=== PATIENT | male | born 1960 | race Caucasian/White ===

== ENCOUNTER 2018-04-11 17:15 | Inpatient (IN) | payer OTHER ==
[~2018-04-11] VITALS: Ht 180.3 cm; Wt 95.4 kg
--- NOTE | 2018-04-11 17:35 | EKG ---
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
--- NOTE | 2018-04-11 17:47 | PHYS DOC ---
Past History Past Medical History: COPD, Hypertension, Seizure Additional Past Surgical Histo: bilateral elbows Smoking: Quit Greater Than 1 Year Alcohol Use: Occasionally Drug Use: Marijuana Adult General Chief Complaint Chief Complaint: seizure activity/syncope/hypertension HPI HPI Patient is a 57 year old male patient of [facility] who brought in by EMS after [facility] Emergency room refused to accept the patient after EMS unloading him in ambulance bay of [facility] for lack of ICU bed even patient originally was accepted to [facility] according to EMS report. Patient has history of seizure but today had 1 seizure that was different from his usual seizure with loss of consciousness few seconds and after seizure did not have postictal condition. Patient complaining of constant dizziness that his seizure and had 1 episode of vomiting. EMS states his blood pressure was 50s over 30s without tachycardia or altered level of consciousness. Patient states he drinks alcohol twice a week and had fifth of vodka last night. Patient denies chest pain, shortness of breath, focal neuro deficit, fever and chills, cough and congestion. Patient started to have moderate to severe cough after arrival to emergency room. Review of Systems Review of Systems Constitutional: Denies fever or chills [] Eyes: Denies change in visual acuity, redness, or eye pain [] HENT: Denies nasal congestion or sore throat [] Respiratory: Denies cough or shortness of breath [] Cardiovascular: No additional information not addressed in HPI [] GI: Denies abdominal pain, nausea, vomiting, bloody stools or diarrhea [] : Denies dysuria or hematuria [] Musculoskeletal: Denies back pain or joint pain [] Integument: Denies rash or skin lesions [] Neurologic: Reports dizziness and headache, denies focal weakness or sensory changes [] Endocrine: Denies polyuria or polydipsia [] All other systems were reviewed and found to be within normal limits, except as documented in this note. Allergies Allergies Allergies Coded Allergies Type Severity Reaction Last Updated Verified phenytoin Allergy Unknown 04/11/18 Yes Physical Exam Physical Exam Constitutional: Well developed, well nourished, mild distress, non-toxic appearance, smell of alcohol on breath. [] HENT: Normocephalic, atraumatic, oropharynx moist, no oral exudates, nose normal. [] Eyes: PERRLA, EOMI, conjunctiva normal, no discharge. [] Neck: Normal range of motion, no tenderness, supple, no stridor. [] Cardiovascular:Heart rate regular rhythm, no murmur [] Lungs & Thorax: Bilateral breath sounds clear to auscultation [] Abdomen: Bowel sounds normal, soft, no tenderness, no masses, no pulsatile masses. [] Skin: Warm, dry, no erythema, no rash. [] Back: No tenderness, no CVA tenderness. [] Extremities: No tenderness, no cyanosis, no clubbing, ROM intact, no edema. [] Neurologic: Alert and oriented X 3, normal motor function, normal sensory function, no focal deficits noted, NIH scale of 0. [] Psychologic: Affect normal, judgement normal, mood normal. [] Olivier- 1900: Constitutional: Well developed, well nourished, non-toxic appearance, HENT: Normocephalic, atraumatic Eyes: PERRL, EOMI, horizontal nystagmus noted Neck: Normal range of motion, supple, no stridor. [] Skin: Warm, dry, no erythema, no rash. [] Neurologic: Alert and oriented X 3, normal motor function, normal sensory function, no focal deficits noted, Strength to all extremities 5/5 Psychologic: Affect normal, judgement normal, mood normal. [] EKG EKG EKG interpreted by me. EKG at 1725 showed heart rate of 77, normal sinus rhythm , normal VT and QT, no prolonged QT, no acute ST and T-wave abnormalities, poor R wave practicing in anteroseptal leads. Radiology/Procedures Radiology/Procedures PROCEDURE: CT HEAD WO CONTRAST CT HEAD INDICATION: SYNCOPE COMPARISON: None Available. Exposure: One or more of the following individualized dose reduction techniques were utilized for this examination: 1. Automated exposure control 2. Adjustment of the mA and/or kV according to patient size 3. Use of iterative reconstruction technique TECHNIQUE: 5 mm contiguous axial images were obtained from the skull base to the vertex in both bone and soft tissue algorithm. FINDINGS: There is a 2.3 cm hypodensity identified in the inferior aspect of the right frontal lobe without mass effect probably old infarct. Small right middle cranial fossa arachnoid cyst identified. No evidence of acute intracranial hemorrhage. No extra-axial fluid collections. No mass effect or midline shift. Ventricular size is appropriate. Basal cisterns are patent. No fractures identified.Zimmerman-white differentiation is preserved.Globes and orbits are within normal limits. Paranasal sinuses and mastoid air cells are clear. IMPRESSION: 1. 2.3 cm hypodensity identified in the inferior aspect of the right frontal lobe without mass effect probably old infarct. If there is clinical suspicion for acute infarct , consider follow-up MRI. CXR (preliminary interpretation by ED physician): Bibasilar atelectasis Course & Med Decision Making Course & Med Decision Making Pertinent Labs and Imaging are pending. Evaluation of patient in ER showed 57-year-old male patient brought in because of hypotension and seizures or syncope. Patient was alert and oriented with arrival to ER but had a constant cough that improved with DuoNeb. Blood pressure was 120s/60s and heart rate was 70s. Patient had unremarkable physical exam. Labs and CT of head is pending. Patient care transferred to Dr. Olivier at 1900. 1900- Sign out received from Dr. Ramírez for patient with history of seizure at home which was different than prior seizures in the past. Patient also apparently was noted to have significant hypotension. [facility] facility . Labs reviewed. Lactic acidosis noted. NO SIRS criteria met. WBC WNL. EKG reviewed. Troponin WNL. CT head without acute process. Patient reports right frontal hypodensity is chronic in nature. Patient seen and evaluated by myself. Horizontal nystagmus noted. Antivert and ASA given. NIHSS 0. CXR with some atelectasis, Orthostatic VS stable with laying and sitting. Given patient reports continued dizziness and reports seizure different than prior. Patient requiring admission for further evaluation and treatment. Discussed with Dr. Knight (hospitalist) who is in agreement with admission. Discussed findings and plan with patient, who acknowledges understanding and agreement. Dragon Disclaimer Dragon Disclaimer This electronic medical record was generated, in whole or in part, using a voice recognition dictation system. Departure Departure: Impression: Primary Impression: Dizziness Additional Impressions: History of seizure Lactic acidosis Disposition: ADMITTED INPATIENT Admitting Physician: Rickey Knight Condition: STABLE NIHSS - ED NIH Stroke Scale: NIH Stroke Scale Response (Comments) Value Level of Consciousness: 0 Alert/Responsive 0 LOC Questions: 0 Answers both correctly 0 LOC Commands: 0 Performs both tasks 0 Best Gaze: 0 Normal 0 Visual: 0 No visual loss 0 Facial Palsy: 0 Normal, symmetrical 0 Motor - Left Arm 0 No drift 0 Motor - Right Arm 0 No drift 0 Motor - Left Leg 0 No drift 0 Motor: Right Leg 0 No drift 0 Limb Ataxia: 0 Absent 0 Sensory: 0 No loss 0 Best Language: 0 Normal 0 Dysathria: 0 Normal 0 Extinction and Inattention: 0 Normal 0 Total 0 Problem Qualifiers LAMAR RAMÍREZ MD Apr 11, 2018 17:47 MADELINE OLIVIER DO Apr 11, 2018 19:52
[2018-04-11 18:00] LABS: BASO # 0.1 x10^3/uL (0.0-0.2); BASO % 1 % (0-3); EOS # 0.2 x10^3/uL (0.0-0.7); EOS % 2 % (0-3); HEMATOCRIT 44.4 % (39.0-53.0); HEMOGLOBIN 14.8 g/dL (13.0-17.5); LYMPH # 2.5 x10^3/uL (1.0-4.8); LYMPH % 29 % (24-48); MEAN CORPUSCULAR HEMOGLOBIN 31 pg (25-35); MEAN CORPUSCULAR HGB CONC 33 g/dL (31-37); MEAN CORPUSCULAR VOLUME 92 fL (79-100); MONO % 11 % (0-9); NEUT % 57 % (31-73); PLATELET COUNT 199 x10^3/uL (140-400); RED BLOOD COUNT 4.81 x10^6/uL (4.30-5.70); RED CELL DISTRIBUTION WIDTH 15.6 % (11.5-14.5); WHITE BLOOD COUNT 8.8 x10^3/uL (4.0-11.0)
[2018-04-11] MEDS ORDERED: IV NORMAL SALINE 1,000ML 1,000 ML IV ONE (18:00)
[2018-04-11] MEDS ORDERED: ONDANSETRON PF 4 MG/2 ML VIAL. IV ONE (18:00)
[2018-04-11] MEDS ORDERED: IPRATRPIUM/ALBUTEROL 0.5/2.5MG 3 ML NEBU. NEB ONE (18:00)
[2018-04-11] MEDS ORDERED: methylPREDNISolone SOD SUCC PF 125 MG/2 ML VIAL. IV ONE (18:00)
--- NOTE | 2018-04-11 18:20 | RAD ---
CT HEAD INDICATION: SYNCOPE COMPARISON: None Available. Exposure: One or more of the following individualized dose reduction techniques were utilized for this examination: 1. Automated exposure control 2. Adjustment of the mA and/or kV according to patient size 3. Use of iterative reconstruction technique TECHNIQUE: 5 mm contiguous axial images were obtained from the skull base to the vertex in both bone and soft tissue algorithm. FINDINGS: There is a 2.3 cm hypodensity identified in the inferior aspect of the right frontal lobe without mass effect probably old infarct. Small right middle cranial fossa arachnoid cyst identified. No evidence of acute intracranial hemorrhage. No extra-axial fluid collections. No mass effect or midline shift. Ventricular size is appropriate. Basal cisterns are patent. No fractures identified.Zimmerman-white differentiation is preserved.Globes and orbits are within normal limits. Paranasal sinuses and mastoid air cells are clear. IMPRESSION: 1. 2.3 cm hypodensity identified in the inferior aspect of the right frontal lobe without mass effect probably old infarct. If there is clinical suspicion for acute infarct , consider follow-up MRI. Electronically signed by: Abel Carmichael MD (04/11/2018 6:17 PM) [facility]
[2018-04-11 18:50] LABS: ALBUMIN 3.2 g/dL (3.4-5.0); ALBUMIN/GLOBULIN RATIO 0.7 (1.0-1.7); CALCIUM 8.1 mg/dL (8.5-10.1); CREATININE 1.1 mg/dL (0.7-1.3); GFR 68.5; POTASSIUM 3.7 mmol/L (3.5-5.1); TOTAL BILIRUBIN 0.3 mg/dL (0.2-1.0); TOTAL PROTEIN 7.5 g/dL (6.4-8.2)
[2018-04-11] MEDS ORDERED: MECLIZINE 12.5 MG TABLET. PO PRN (19:00)
[2018-04-11] MEDS ORDERED: cefTRIAXone SODIUM 1 GM VIAL IV ONE (19:09)
[2018-04-11] MEDS ORDERED: IV NORMAL SALINE 50ML 50 ML ONE (19:09)
[2018-04-11] MEDS ORDERED: ONDANSETRON PF 4 MG/2 ML VIAL. IV PRN (20:00)
[2018-04-11] MEDS ORDERED: ASPIRIN 325 MG TABLET PO ONE (20:00)
--- NOTE | 2018-04-11 21:07 | RAD ---
EXAM: CHEST 1 VIEW History: Syncope COMPARISON: None available. TECHNIQUE: Single portable radiograph of the chest FINDINGS: The cardiac silhouette is unremarkable. Minimal left infrahilar airspace opacities likely atelectasis or infiltrate. The costophrenic sulci are clear and well demarcated. IMPRESSION: Minimal left infrahilar airspace opacity likely atelectasis or infiltrate. Follow-up to resolution. Electronically signed by: Abel Carmichael MD (04/11/2018 9:04 PM) [facility]
[2018-04-11 21:18] VITALS: BP 150/97
[2018-04-11] MEDS ORDERED: CHOL500016 PO (22:46)
[2018-04-11] MEDS ORDERED: METH-38 PO (22:46)
[2018-04-11] MEDS ORDERED: METF500T16 PO (22:46)
[2018-04-11] MEDS ORDERED: GABA600T2 PO (22:46)
[2018-04-11] MEDS ORDERED: PANT40TA5 PO (22:46)
[2018-04-11] MEDS ORDERED: LEVO125T5 PO (22:46)
[2018-04-11] MEDS ORDERED: DOXE50CA PO (22:46)
[2018-04-11] MEDS ORDERED: METO50TA6 PO (22:46)
[2018-04-11] MEDS ORDERED: SERT100T PO (22:46)
[2018-04-11] MEDS ORDERED: CETI10TA16 PO (22:46)
[2018-04-11] MEDS ORDERED: MELA3TAB2 PO (22:46)
[2018-04-11] MEDS ORDERED: LISI-334 PO (22:46)
[2018-04-11] MEDS ORDERED: HYDR-2765 PO (22:46)
[2018-04-11] MEDS ORDERED: CETIRIZINE HCL 10 MG TABLET PO PRN (23:00)
[2018-04-11] MEDS ORDERED: METOPROLOL TART IMMED RELEASE 50 MG TABLET PO PRN (23:00)
[2018-04-11] MEDS: IV NORMAL SALINE 1,000ML 1,000 ML IV SCH (23:12)
[2018-04-12] MEDS: DOXEPIN HCL 25 MG CAPSULE PO PRN ×2 (00:35→21:11)
[2018-04-12 05:00] VITALS: BP 154/87
[2018-04-12] MEDS: LEVOTHYROXINE 125 MCG TABLET PO SCH (06:13)
[2018-04-12 06:52] LABS: AMPHETAMINE/METHAMPHETAMINE NEG (NEG); BARBITURATES NEG (NEG); BENZODIAZEPINES NEG (NEG); CANNABINOIDS POS (NEG); COCAINE NEG (NEG); METHADONE NEG (NEG); OPIATES POS (NEG); PHENCYCLIDINE NEG (NEG)
[2018-04-12 06:53] LABS: BACTERIA,URINE 0 /HPF (0-FEW); BILIRUBIN,URINE NEG (NEG); CLARITY,URINE CLEAR; COLOR,URINE YELLOW; GLUCOSE,URINE NEG (NEG); NITRITE,URINE NEG (NEG); RBC,URINE 0 /HPF (0-2); SQUAMOUS EPITHELIAL CELL,UR OCC /LPF; UROBILINOGEN,URINE 0.2 mg/dL (0.2 mg/dL); WBC,URINE 0 /HPF (0-4)
[2018-04-12] MEDS: SERTRALINE 100 MG TABLET. PO SCH (08:38)
[2018-04-12] MEDS: GABAPENTIN 300 MG CAPSULE. PO SCH ×2 (08:38→21:11)
[2018-04-12] MEDS: metFORMIN 500 MG TABLET PO SCH ×2 (08:39→17:29)
[2018-04-12] MEDS: PANTOPRAZOLE 40 MG TABLET. PO SCH (08:40)
[2018-04-12] MEDS: LISINOPRIL 20 MG TABLET PO SCH ×2 (08:40→21:12)
[2018-04-12] MEDS: METOPROLOL TART IMMED RELEASE 50 MG TABLET PO SCH ×2 (08:40→21:12)
[2018-04-12] MEDS: METHOCARBAMOL 750 MG TABLET PO SCH ×2 (08:40→21:11)
[2018-04-12] MEDS: IV NORMAL SALINE 1,000ML 1,000 ML IV SCH ×2 (08:49→19:00)
[2018-04-12 11:13] VITALS: BP 156/95
[2018-04-12] MEDS ORDERED: DEXTROSE 50% 25 GM / 50ML DISP.SYRIN. IV PRN (12:45)
--- NOTE | 2018-04-12 14:15 | HP ---
ADMIT DATE: 04/12/2018 HISTORY OF PRESENT ILLNESS: The patient is a 57-year-old male patient, who was brought in by the emergency medical service personnel after the Emergency Room refused to accept the patient as he was originally accepted to the [facility] according to the EMS report. The patient stated that he had had one seizure that is different from his usual seizures with loss of consciousness few seconds. After seizures he did not have the postictal state. The patient said that he stood up and felt dizzy and fell. His blood pressure was checked by his was low and about to 50/30 and she managed to get him off the ground and when he was in the chair his head was back and his eyes were rolled back and he vomited and was drowning in his vomitus according to description. He denied biting his tongue or being incontinent of bowel and bladder. He drank some alcohol on Friday and he was not sure whether this is something that related to that. He denied; however, any chest pain, shortness of breath, cough, phlegm, or hemoptysis. Denied any chills, rigors, or fever. He was investigated extensively in the Emergency Room. His lab work was mostly unremarkable except the fact that he has lactic acidosis with lactic acid of 2.8. His white cell count was normal. His chemistry was unremarkable; however, his toxic screen was positive for opiates, cannabinoids as well as alcohol. Urinalysis was essentially unremarkable. He has had the CT scan of the head, which was also unremarkable except that he has 2.3 cm hyperdensity identified in the inferior aspect of the right frontal lobe without mass effect, probably an old infarct, small on the right middle cranial fossa, arachnoid cyst identified. No evidence of acute intracranial hemorrhage, no extraaxial fluid collection, no mass effect or midline shift. Ventricular size is appropriate. Basal cisterns are patent. There is no fracture identified. Zimmerman-white differentiation is preserved. Globes and orbits are within normal limits. Paranasal sinuses and mastoid air cells are clear. Chest x-ray was unremarkable. The cardiac silhouette is unremarkable with minimal left infrahilar airspace opacities, likely atelectasis or infiltrate. The costophrenic angles are clear and well demarcated. The patient was admitted for further observation and continue with IV fluid. We will consult Dr. Habib, although I am somewhat not convinced that this is seizure and most likely postural hypotension due to dehydration. PAST MEDICAL HISTORY: Significant for seizure disorder for which he used to be on Dilantin before and apparently developed allergy and hives. He is now only on gabapentin. He is known to have hypertension, type 2 diabetes mellitus, hyperlipidemia. He was diagnosed with hepatitis C and was treated with Harvoni last year. He is known to have benign prostatic hypertrophy. PAST SURGICAL HISTORY: Significant for fall with fracture of both elbows as he fell from 22 feet height. He has also had colonoscopy every 3 years because of strong family history of colon cancer. ALLERGIES: He is allergic to DILANTIN. MEDICATIONS: He is currently on cetirizine 10 mg once a day, Methocarbamol 750 mg p.o. b.i.d., metoprolol tartrate 50 mg twice a day, lisinopril 20 mg twice a day, hydrocodone/APAP 7.5/325 one tablet twice a day, gabapentin 900 mg twice a day, doxepin 25 mg at bedtime, sertraline 100 mg once a day. He is also on Protonix 20 mg daily, metformin 250 mg twice a day, levothyroxine 125 mcg daily, cholecalciferol for vitamin D3 5000 international units once a week, and melatonin 3 mg at bedtime. FAMILY HISTORY: He has 2 sisters older and healthy. One brother at age of 61 because of colon cancer, another brother still alive and has chronic sinus problems. His father at the age of 69 because of mesothelioma. His mother is still alive at the age of 86 and has dementia. SOCIAL HISTORY: He is , has 1 son. Quit smoking about 9 days ago. He smoked of less than about half a pack a day for almost 45 years. He drinks vodka and Spiced Rum twice a week. He drinks up to a fifth of vodka twice a week. He also smokes marijuana. REVIEW OF SYSTEMS: The patient denied any blurring of vision, cataract, glaucoma or macular degeneration. Denied any earache, tinnitus, or sensorineural deafness. Denied nosebleeds, stuffy nose, or postnasal drip. Denied any sore throat, sore tongue, toothache, hoarseness of voice, or difficulty swallowing. Denied any nausea, vomiting, diarrhea or constipation. Denied any hematemesis, melena, or hematochezia. Denied any dysuria, frequency or hematuria. Did complain of nocturia up to 4-5 times. Denied any chest pain, shortness of breath, orthopnea, paroxysmal nocturnal dyspnea. Denied any cough, phlegm or hemoptysis. Denied any chills, rigors, or fever. PHYSICAL EXAMINATION: GENERAL: On arrival to the Emergency Room, apparently he looked well and was clearly in no apparent respiratory distress. No pallor, jaundice, or cyanosis. No lymphadenopathy, no thyromegaly. No jugular venous distension. No lower limb edema. VITAL SIGNS: His heart rate was 74, blood pressure was 105/70, temperature was 97.7, respiratory rate was 16, and oxygen saturation was 97% on room air. HEAD, EYES, EARS, NOSE AND THROAT: Showed normocephalic, atraumatic. NECK: Supple. HEART: Showed normal first and second heart sounds. No gallop, rub or murmur. CHEST: Clear to auscultation. No crepitation or rhonchi. ABDOMEN: Distended, soft, nontender. No guarding or rigidity. No organomegaly. All hernial orifice intact. Bowel sounds normal. NEUROLOGIC: He was awake, alert, responding appropriately. All cranial nerves intact. He moves extremities without difficulty. LABORATORY DATA: While in the Emergency Room, he has had lab work done, which showed that his white cell count was 8800, hemoglobin 14.8, hematocrit 44, MCV 92, and platelet count of 199,000. His chemistry showed a serum sodium 139, potassium 3.7, chloride 102, bicarbonate 25, anion gap of 12, BUN 22, creatinine 1.1, estimated GFR was 68 mL per minute. His glucose was 124, calcium was 8.1, magnesium 2. Total bilirubin, AST, ALT, alkaline phosphatase were normal. His total protein was 7.5, albumin was 3.2. His urinalysis was essentially unremarkable. The urine was yellow, clear with a pH of 5.5, specific gravity of 1.020. The urine was negative for protein, glucose, ketones, blood, nitrite and bilirubin as well as leukocyte esterase. There was no rbc's, no wbc's and no bacteria and urine toxicology screen was positive for opiates, cannabinoids, and alcohol. His blood alcohol level was 61 mg/dL. He did have a CT scan of the head, which showed that there is a 2.3 cm hyperdensity identified in the inferior aspect of the right frontal lobe without mass effect, probably old infarct, small right middle cranial fossa, arachnoid cyst identified. No evidence of acute intracranial hemorrhage, no extraaxial fluid collection, no mass effect or midline shift, ventricular size is appropriate. Basal cisterns are patent. No fracture is identified. The zimmerman-white differentiation is preserved. Globes and orbits are within normal limits. Paranasal sinuses and mastoid air cells are clear. PLAN: All his medications were resumed. I will obviously continue with IV fluid. Check his orthostatics, consult Dr. Hutchison and decide the further management accordingly. TRINH STEVENS MD DR: ELIDA/isabell JOB#: [id number] / [id number]
[2018-04-12 15:42] VITALS: BP 168/96
[2018-04-12] MEDS: INSULIN LISPRO 300 UNITS/3 ML INSULN.PEN. SQ SCH (17:00)
--- NOTE | 2018-04-12 17:01 | PN ---
DATE: SUBJECTIVE: The patient is resting, slightly propped up in bed, in no apparent distress. He is awake, alert, has no further syncopal episode or seizures. He did have mild lactic acidosis. However, his problem explained by the fact that he has hypertension, has 2 sets of cardiac enzymes that are so far negative. PHYSICAL EXAMINATION: GENERAL: When I examined him this afternoon, he looked well and was clearly in no apparent respiratory distress, pale, but no jaundice, cyanosis, or thyromegaly. No jugular venous distention. No limb edema. VITAL SIGNS: His heart rate was 74, blood pressure was 156/95, temperature was 97.5, respiratory rate was 18 and oxygen saturation was 95% on room air. HEAD, EYES, EARS, NOSE AND THROAT: Showed normocephalic, atraumatic. NECK: Supple. HEART: Showed normal first and second heart sounds. No gallop, rub or murmur. CHEST: Clear to auscultation. No crepitation or rhonchi. ABDOMEN: Distended, soft, and nontender. No guarding or rigidity. No organomegaly. All hernial orifices intact. Bowel sounds normal. NEUROLOGIC: He is definitely awake, alert, responding appropriately. All his cranial nerves are intact. He moves extremities without difficulty. He ambulates without assistance or assistive devices. We did check his orthostatics and there is no evidence of postural hypertension. LABORATORY DATA: His lab work showed his blood sugar was slightly high at 292. ASSESSMENT: Syncopal episode versus seizure disorder. The patient said that he did not have an aura, had not bite his tongue, did not become incontinent of bowel or bladder, has no postictal state. His blood pressure was low at the time of this event and he has also mild lactic acidosis. Other medical problems include hypertension, type 2 diabetes, and hyperlipidemia. He apparently has hepatitis C that was treated with Harvoni. He has also benign prostatic hypertrophy by his symptoms. My plan is to continue with all his current medication. I did consult Dr. Hutchison to see him. I would also consult Physical and occupational therapy and if he remained hemodynamically stable, has no further syncopal episodes or seizure disorder, he can be discharged. TRINH STEVENS MD DR: ELIDA/isabell JOB#: [id number] / [id number]
[2018-04-12 18:33] VITALS: BP 176/98
[2018-04-12] MEDS ORDERED: MELATONIN 3 MG TABLET PO SCH (21:00)
[2018-04-13 00:18] VITALS: BP 163/115
--- NOTE | 2018-04-13 00:20 | CONS ---
DATE OF CONSULTATION: 04/12/2018 REFERRING PHYSICIAN: Rickey Knight MD REASON FOR CONSULTATION: Syncope, rule out seizure. HISTORY OF PRESENT ILLNESS: The patient is a 57-year-old right-handed male, who was admitted through Emergency Room after he presented with possible syncopal attacks versus seizure. According to the patient, he had a history of seizure disorder since the childhood of unknown etiology and was treated with anticonvulsants - for approximately 13 years. On 04/11/2018, the patient stated he tried to stand up, he felt dizzy and he fell. The patient was confused. His eyes rolled up in his head and he was stiff for 1-2 minutes. The patient recalls the events; however, he started vomiting vigorously. His took his blood pressure and was very low and around 45/30. When she tried to straight his neck and head, he vomited again. Then, EMS was activated. On the arrival to his home, his blood pressure was 50s/40s. The patient denies bowel or bladder incontinence, tongue biting and he was somewhat confused for 3-5 minutes afterwards. The patient admitted he has been drinking alcohol heavily throughout his life and recently had been doing heavily at least twice a week and the day before admission, he drank at least one fifth of liquor. 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 His urine drug screen was positive for opiates, cannabinoid and alcohol. The patient stated he had not had recurrent seizure for many years. Seizure workup was performed in the past, but the patient did not recall the results. Currently, he denies headaches, visual disturbances, nausea, vomiting, chest pain, shortness of breath or palpitation, dysarthria or dysphagia. PAST MEDICAL HISTORY: Significant for seizure disorder as described above. Dilantin was discontinued because of side effects, history of hypertension, diabetes mellitus type 2, hyperlipidemia, hepatitis C and benign prostatic hypertrophy, hypothyroidism. PAST SURGICAL HISTORY: Status post bilateral elbow fractures secondary to fall, required surgery. FAMILY HISTORY: His brother at the age of 61 from colon cancer. Father at the age of 69 mesothelioma and his mother alive at the age of 86 with dementia. SOCIAL HISTORY: The patient is . He has one son. He quit smoking 9 days ago. He used to smoke a half pack of cigarettes daily throughout his life. He drinks liquor twice weekly and he smoked marijuana and he takes hydrocodone for pain. CURRENT HOME MEDICATIONS: Cetirizine, methocarbamol, metoprolol, lisinopril, hydrocodone 7.5/325 mg p.r.n. twice daily, gabapentin 900 mg twice daily, doxepin, sertraline, Protonix, metformin, levothyroxine, vitamin D3 and melatonin. ALLERGIES: DILANTIN. REVIEW OF SYSTEMS: A 10-point review of system was performed as mentioned above in the history of present illness. PHYSICAL EXAMINATION: GENERAL: Well-developed, well-nourished male, not in acute distress. He weighs 209 pounds, height 71 inches. VITAL SIGNS: Blood pressure 156/95, respiratory rate 18, pulse 88 and regular, oxygen saturation is 95% on room air. HEENT: Normocephalic, atraumatic, otherwise, unremarkable. NECK: Supple. Negative for carotid bruit, lymphadenopathy or thyromegaly. LUNGS: Clear to A and P. CARDIOVASCULAR: Regular rate and rhythm, normal S1, S2. There is no S3, S4 or murmur. ABDOMEN: Soft. Bowel sounds positive. EXTREMITIES: Negative for cyanosis, clubbing or pitting edema. MENTAL STATUS: The patient is alert and oriented x 3. The speech is fluent. There is no language dysfunction. Memory, judgment, and abstract thinking are normal. The patient denies hallucination or delusion. CRANIAL NERVES: Visual queen are full. The pupils are reactive to light and accommodation. Extraocular movements are intact. There is no nystagmus. There is no facial motor or sensory deficit. Hearing is intact bilaterally. The palate is elevated symmetrically. Sternocleidomastoid muscles are powerful bilaterally. The patient shrugs his shoulders symmetrically, protrudes his tongue in the midline without fasciculation or atrophy. MOTOR: No focal muscle bulk was seen. The tone is normal. The strength is 5/5 throughout. SENSORY: Revealed normal pinprick, light touch, vibratory and position senses. Deep tendon reflexes were symmetric and active without pathologic responses. Gait and coordination were normal. LABORATORY DATA: CBC revealed white blood cells of 8.8 thousand, hemoglobin 14.8, hematocrit 44.4, platelet count 199,000. Chemistry revealed sodium of 139, potassium 3.7, chloride 102, CO2 of 25, BUN 22, creatinine 1.1, glucose 124. Lactic acid is high at 2.6. Magnesium 2. Liver enzymes are normal. Troponin level is normal. Urinalysis is negative for urinary tract infections. Urine drug screen is positive for alcohol at 51 and for marijuana and opiates. 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 Chest x-ray revealed atelectasis versus infiltrate to the left infrahilar airspace. IMPRESSION: 1. Syncope and less likely seizure. 2. Remote history of seizure disorder since age 8, etiology uncertain. 3. Alcohol abuse. 4. Multiple medical problems include hypertension, hypothyroidism, diabetes mellitus, depression, anxiety, hepatitis C and benign prostatic hypertrophy. RECOMMENDATIONS: 1. Continue with current home medications. 2. Watch for alcohol withdrawal seizure. 3. We will arrange for electroencephalogram. 4. Alcohol cessation. M Hemant SCHROEDER MD DR: JOE/isabell JOB#: [id number] / [id number]
[2018-04-13 00:29] VITALS: BP 174/99
[2018-04-13] MEDS: HYDROcodone/APAP 7.5/325MG 1 TAB TABLET PO PRN ×2 (00:40→08:28)
[2018-04-13] MEDS: IV NORMAL SALINE 1,000ML 1,000 ML IV SCH (05:00)
[2018-04-13 06:35] VITALS: BP 185/120
[2018-04-13] MEDS: LEVOTHYROXINE 125 MCG TABLET PO SCH (06:47)
[2018-04-13] MEDS: LISINOPRIL 20 MG TABLET PO SCH (06:47)
[2018-04-13] MEDS: METOPROLOL TART IMMED RELEASE 50 MG TABLET PO SCH (06:48)
[2018-04-13] MEDS: INSULIN LISPRO 300 UNITS/3 ML INSULN.PEN. SQ SCH ×2 (07:45→12:00)
[2018-04-13 08:04] VITALS: BP 185/118
[2018-04-13] MEDS ORDERED: diphenhydrAMINE HCL 25 MG CAPSULE PO PRN (08:15)
[2018-04-13] MEDS ORDERED: LORazepam 2 MG/ML VIAL IV PRN ×2 (08:15)
[2018-04-13] MEDS ORDERED: LORazepam 1 MG TABLET PO PRN ×2 (08:15)
[2018-04-13] MEDS ORDERED: HALOPERIDOL LACT 5 MG/ML VIAL. IM PRN (08:15)
[2018-04-13] MEDS ORDERED: cloNIDine HCL 0.1 MG TABLET PO PRN (08:15)
[2018-04-13] MEDS: metFORMIN 500 MG TABLET PO SCH (08:21)
[2018-04-13] MEDS: PANTOPRAZOLE 40 MG TABLET. PO SCH (08:22)
[2018-04-13] MEDS: SERTRALINE 100 MG TABLET. PO SCH (08:22)
[2018-04-13] MEDS: GABAPENTIN 300 MG CAPSULE. PO SCH (08:22)
[2018-04-13] MEDS: METHOCARBAMOL 750 MG TABLET PO SCH (08:22)
[2018-04-13] MEDS ORDERED: amLODIPine BESYLATE 5 MG TABLET PO ONE (08:30)
[2018-04-13 10:28] VITALS: BP 136/88
[2018-04-13] MEDS ORDERED: AMLO10TA6 PO (12:37)
--- NOTE | 2018-04-13 14:28 | DS ---
DATE OF DISCHARGE: 04/13/2018 HOSPITAL COURSE: The patient is a 57-year-old male patient, who basically was brought in with altered mental status, what seems to be syncopal episode. According to him, his said that his blood pressure was low, about 50/30. He did not have his usual aura and did not bite his tongue and was not incontinent of bowel or bladder. He did not go into postictal state and he did have also an initial investigation, slightly elevated lactic acid. His lab works are mostly unremarkable except for positive tox screen for opiates, cannabinoids and alcohol. The patient remained hemodynamically stable. He has had no further syncopal episode nor does he have any alcohol withdrawal seizures and this morning, his blood pressure was somewhat high with possible alcohol withdrawal and we did add amlodipine to his medication and he was fine. His blood pressure was much better controlled. He was seen in consultation by Dr. Hutchison who recommended to do an outpatient EEG and as he remained stable, has no further syncopal episode. His blood pressure is much improved. A decision was made to discharge him home to follow with his primary care physician at [facility]. PHYSICAL EXAMINATION: GENERAL: When I saw him this afternoon, he looked well and was clearly in no apparent respiratory distress. No pallor, jaundice, cyanosis, or thyromegaly. No jugular venous distension. No limb edema. VITAL SIGNS: His heart rate was 61, blood pressure was 136/68, temperature was 97.9, respiratory rate was 20, and oxygen saturation was 96%. HEAD, EYES, EARS, NOSE AND THROAT: Showed normocephalic, atraumatic. NECK: Supple. HEART: Showed normal first and second heart sounds with no gallop, rub or murmur. CHEST: Clear to auscultation. No crepitation or rhonchi. ABDOMEN: Distended, soft, and nontender. NEUROLOGIC: He was awake, alert, responding appropriately. Cranial nerves intact. EXTREMITIES: He moves extremities without difficulty, ambulates without assistance or assistive devices. LABORATORY DATA: This morning showed that his blood sugar has been much better controlled. His chemistry showed serum sodium of 139, potassium 3.7, chloride 102, bicarbonate 25, anion gap of 12, BUN 22, creatinine 1.1, estimated GFR was 68 mL per minute. His glucose was 124, calcium 8.1, magnesium 2. Total bilirubin, AST, ALT, alkaline phosphatase were normal. His total protein was 7.5, albumin was 3.2 and his white cell count was 8800, hemoglobin 14.8, hematocrit 44, MCV 92, and platelet count 199,000. DISCHARGE MEDICATIONS: He was discharged home to continue on following medications: Amlodipine 10 mg once a day, cetirizine 10 mg once a day, cholecalciferol for vitamin D3 5000 international units once a day, doxepin 50 mg capsules at bedtime, gabapentin 600 mg tablet twice a day, hydrocodone/APAP 7.5/325 one tablet twice a day, levothyroxine 125 mcg once a day, lisinopril 20 mg twice a day, melatonin 3 mg once a day, metformin 500 mg twice a day, methocarbamol for Robaxin 750 twice a day, metoprolol tartrate 25 mg twice a day, Protonix 20 mg once a day and sertraline for Zoloft 100 mg once a day. FINAL DISCHARGE DIAGNOSES: 1. Syncopal episode. 2. Hypertension. 3. Hypothyroidism. 4. Type 2 diabetes. He apparently was diagnosed with hepatitis C and was treated with Harvoni. He is also known to have benign prostatic hypertrophy. TRINH STEVENS MD DR: ELIDA/isabell JOB#: [id number] / [id number]
--- NOTE | 2018-04-13 18:50 | PN ---
DATE: SUBJECTIVE: The patient continues to have neck pain, radiating to the right shoulder plate. The patient stated he has a C-spine x-ray done 2 months ago at [facility] here in [place], but he does not know the results. He denies numbness or weakness of the upper and lower extremities. The patient denies any palpitations, headaches, visual disturbances, chest pain, shortness of breath or palpitations. His blood pressure has been elevated throughout the night and amlodipine has been added today. We are going to check blood pressure and we are going to monitor his blood pressure today and adjust his blood pressure medications chronically. OBJECTIVE: GENERAL: Well-developed, well-nourished male, not in acute distress. VITAL SIGNS: Blood pressure 185/118, respiratory rate 12, the pulse is 54 and temperature is 97.3, oxygen saturation 98% on room air. HEENT: Normocephalic, atraumatic and otherwise unremarkable. NECK: Supple. Negative for carotid bruit, lymphadenopathy or thyromegaly. LUNGS: Clear to A and P. CARDIOVASCULAR: Regular rhythm, normal S1, S2. There is no S3, S4, or murmur. ABDOMEN: Soft. Bowel sounds positive. EXTREMITIES: Negative for cyanosis, clubbing or pitting edema. NEUROLOGIC: Normal mental status and intact cranial nerves. There is no focal motor or sensory deficit. Deep tendon reflexes are symmetric and active without pathology responses. Gait and coordination are normal. IMPRESSION: 1. Syncope versus seizure. 2. Poorly controlled hypertension. 3. Alcohol abuse. 4. Neck pain radiating to the right shoulder plate and aggravated by turning the head to the right side, probably secondary to underlying degenerative disk disease. RECOMMENDATION: 1. We will obtain the result from C-spine x-ray done at the [facility] here in [place]. 2. Continue with current management initiated by Dr. Knight. 3. We will arrange for an electroencephalogram on outpatient basis. M Hemant SCHROEDER MD DR: JOE/isabell JOB#: [id number] / [id number]
[2018-04-18] MEDS ORDERED: CHOLECALCIFEROL 5000 UNIT PO SCH (09:00)
== END 2018-04-13 13:45 | disposition home or self-care (01) | DRG 312 ==
LOC: ER 17:15 → 1 SOUTH 20:05
PROVIDERS: ADMIT Internal Medicine; ATTEND Internal Medicine
DX: R55 Syncope and collapse (principal); E87.2 Acidosis; J98.11 Atelectasis; G40.909 Epilepsy, unspecified, not intractable, without status epilepticus; B19.20 Unspecified viral hepatitis C without hepatic coma; E03.9 Hypothyroidism, unspecified; E11.9 Type 2 diabetes mellitus without complications; E78.5 Hyperlipidemia, unspecified; E86.0 Dehydration; F10.10 Alcohol abuse, uncomplicated; F12.90 Cannabis use, unspecified, uncomplicated; F17.210 Nicotine dependence, cigarettes, uncomplicated; F32.9 Major depressive disorder, single episode, unspecified; F41.9 Anxiety disorder, unspecified; H55.09 Other forms of nystagmus; I10 Essential (primary) hypertension; J44.9 Chronic obstructive pulmonary disease, unspecified; W18.30XA Fall on same level, unspecified, initial encounter; F11.90 Opioid use, unspecified, uncomplicated; Y90.2 Blood alcohol level of 40-59 mg/100 ml; N40.0 Benign prostatic hyperplasia without lower urinary tract symptoms; Z80.0 Family history of malignant neoplasm of digestive organs; Z91.81 History of falling; Z88.8 Allergy status to other drugs, medicaments and biological substances; Y93.89 Activity, other specified; Y92.89 Other specified places as the place of occurrence of the external cause; Y99.8 Other external cause status; Z79.899 Other long term (current) drug therapy; Z79.84 Long term (current) use of oral hypoglycemic drugs
CPT/HCPCS: 36415; 70450; 71045; 80053; 80307; 81001; 82550; 82947; 83605; 83735; 83880; 84484; 85025; 87040; 87070; 87205; 93005; 94640; 96361; 96365; 96375; G0480; J0696; J1815; J2405; J2930; J7620; J8597; 99285-25; J7030